=== PATIENT | female | born 1965 | race Caucasian/White ===

== ENCOUNTER 2018-06-27 09:17 | Observation (INO) ==
[2018-06-27 10:05] LABS: Basophils # (auto) 0.02 K/uL (0-0.2); Basophils % (auto) 0.3 %; Eosinophils # (auto) 0.07 K/uL (0-0.5); Eosinophils % (auto) 0.9 %; Hemoglobin 13.5 g/dL (12.0-16.0); Immature Granulocytes # (auto) 0.01 K/uL (0.00-0.02); Immature Granulocytes % (auto) 0.1 %; Lymphocytes # (auto) 2.04 K/uL (1.2-3.4); Mean Corpuscular Hgb Conc 33.8 g/dL (32-36); Mean Corpuscular Volume 91.3 fL (80-100); Mean Platelet Volume 10.4 fL (7.4-10.4); Monocytes # (auto) 0.48 K/uL (0.11-0.59); Monocytes % (auto) 6.1 %; Neutrophils # (auto) 5.24 K/uL (1.4-6.5); Neutrophils % (auto) 66.6 %; Platelet Count 313 K/uL (130-400); RDW Coefficient of Variation 13.8 % (11.5-14.5); Red Blood Count 4.38 M/uL (4.2-5.4); White Blood Count 7.86 K/uL (4.8-10.8)
--- NOTE | 2018-06-27 10:11 | XRay Report ---
XR chest 1V portable CLINICAL HISTORY: Chest pain. COMPARISON STUDY: No previous studies for comparison. FINDINGS: Lung volumes are normal. There is no pneumothorax or pleural effusion. Cardiac size is norm al. Mediastinal contours are normal. There is no consolidation or evidence for pulmonary edema. IMPRESSION: No acute cardiopulmonary findings. Electronically signed by: Lawrence Melgar M.D. 06/27/2018 10:09 AM
[2018-06-27 10:31] LABS: Albumin Level 4.4 gm/dl (3.4-5.0); BUN Creatinine Ratio 26.2 (10-20); Calcium 9.2 mg/dl (8.5-10.1); Est GFR (African American) 104.3; Potassium 3.7 mmol/L (3.5-5.1)
[2018-06-27 10:37] LABS: Albumin Globulin Ratio 1.2 (0.9-2); Bilirubin,Total 0.5 mg/dl (0.1-1); Globulin 3.8 gm/dl (2.5-4.0); Total Protein 8.2 gm/dl (6.4-8.2)
[2018-06-27] MEDS ORDERED: ASPIRIN 325 MG ECTAB PO ONE ×2 (14:11→14:22)
--- NOTE | 2018-06-27 14:31 | History & Physical Report ---
Date of Service June 27, 2018 Assessment & Plan (1) Precordial chest pain: This is a 52-year-old female with PMH of hypothyroidism and migraines who presents after developing sudden onset chest tightness this morning that has since resolved. -Afebrile, hemodynamically stable -R/o ACS; no known DM II, CAD, HTN, HLD -Initial POC troponin of 0.03. Repeat of 0.03 two hours later. Continue to trend -EKG-NSR with no acute ST changes -CXR- No acute cardiopulmonary findings -Routine echo -Repeat EKG in AM -Fasting lipids, a1c ordered -Consult cardiology -NPO after midnight in case of exercise stress test (2) Acquired hypothyroidism: TSH level pending -Continue levothyroxine DVT Ppx: SQ heparin Code status: FULL PCP: Keanu Phelan Dispo: Observation telemetry. Plan to return home once medically stable. Patient seen in collaboration with Dr. Yeager. Please see addendum. (3) History of migraine: History of Present Illness Chief Complaint: Chest pain Primary Care Provider: Chio Phelan This is a 52-year-old female with PMH of hypothyroidism and migraines who presents after developing sudden onset chest tightness this morning. When patient woke up this morning, she had a migraine and took as needed Maxalt and ibuprofen around 7 AM. [place] well enough to go to work and developed sudden onset chest tightness around 7:30 AM. Describes tightness as central, substernal pain with associated tingling in bilateral hands as well as shortness of breath and diaphoresis. Denies any radiation up to jaw or nausea and vomiting. Pain lasted approximately 15 minutes and then resolve spontaneously. Came to ED for further evaluation. Upon arrival, patient is hemodynamically stable and without chest discomfort. Denies any personal history of heart disease or CT. Denies any known history of GERD or anxiety. Has experienced costochondritis in the past but states that this felt much different. Denies any history of diabetes, HTN or HLD. No known family history of heart disease. No recent travel. No leukocytosis. Hemoglobin normal. Troponin on 0.03 x 2 readings. EKG shows normal sinus rhythm, no acute ST changes. Chest x-ray without acute abnormalities. ED physician spoke to Dr. Ochoa, who recommended trending troponin overnight and possible stress test in the morning. Allergies Allergy/AdvReac Type Severity Reaction Status Date / Time Penicillins Allergy Unknown Verified 06/27/18 16:08 Home Medications Home Medications Medication Instructions Recorded Confirmed Type levothyroxine 100 mcg PO QAM 06/27/18 06/27/18 History multivitamin 1 tab PO HS 06/27/18 06/27/18 History naproxen sodium [Aleve] 220 mg PO BID PRN 06/27/18 06/27/18 History rizatriptan 10 mg TRANSLINGUAL UD PRN 06/27/18 06/27/18 History Past Med/Surg History Medical History Acquired hypothyroidism (Chronic) History of migraine (Chronic) H/O Graves' disease (Resolved) Surgical History H/O hand surgery (Resolved) Family History Other Breast cancer HLD (hyperlipidemia) Social History Current Living Situation: Spouse Other Information That Helps Us Care for You: No Feels Safe at Home: Yes Safety Concerns: Feels Safe At This Time Smoking Status: Never smoker Do You Dip or Chew Tobacco: No Second Hand Exposure: No Tobacco Cessation Education Requested by Patient: No Hx Alcohol Use: Yes Alcohol type: wine Alcohol Intake Frequency: other Hx Substance Use: No Beliefs That Will Affect Care: None Preferred Language: Uzbek Communication Ability: Effective Knot Borer Required: No Review of Systems All systems reviewed & are unremarkable except as noted in HPI & below Physical Exam 2 Vital Signs (Past 24 Hours): Last Vital Signs Temp 36.5 C 06/27/18 09:19 Pulse 84 06/27/18 14:06 Resp 18 06/27/18 14:06 BP 111/69 06/27/18 14:06 Pulse Ox 98 06/27/18 14:06 Physical Exam: General Appearance: WD/WN, no apparent distress Head: normocephalic, atraumatic Eyes: normal inspection, PERRL, EOMI ENT: hearing grossly normal, pharynx normal (moist mucous membranes) Neck: supple, no JVD, no adenopathy Respiratory/Chest: No chest wall tenderness. Lungs clear to auscultation. No wheezes, rales or rhonci. No respiratory distress or accessory muscle use Cardiovascular: regular rate, rhythm, no murmur, normal peripheral pulses Abdomen/GI: normal bowel sounds, soft, non-tender to palpation Extremities/Musculoskelatal: normal inspection, no calf tenderness, normal capillary refill, no pedal edema Neurologic/Psych: alert, normal mood/affect, oriented x 3 Skin: normal color, warm/dry Results & Data Laboratory Results Short CBC 06/27/18 Range/Units 09:41 WBC 7.86 (4.8-10.8) K/uL Hgb 13.5 (12.0-16.0) g/dL Hct 40.0 (37-47) % Plt Count 313 (130-400) K/uL BMP 06/27/18 09:41 Sodium 140 Potassium 3.7 Chloride 105 Carbon Dioxide 27 BUN 20 H Creatinine 0.77 Glucose 86 Calcium 9.2 Liver Function 06/27/18 Range/Units 09:41 Total Bilirubin 0.5 (0.1-1) mg/dl AST 16 (15-37) U/L ALT 25 (12-78) U/L Alkaline Phosphatase 56 (45-117) U/L Albumin 4.4 (3.4-5.0) gm/dl Diagnostic Findings CXR: IMPRESSION: No acute cardiopulmonary findings. ECG Rhythm: normal sinus Code Status & VTE Plan Code Status FULL VTE Prophylaxis Plan VTE Prophylaxis will be ordered: Yes Supervising Physician Co-Signing Physician Notes Pt was seen and examined. Agreed with Tish Coe. 52-year-old female with PMH of hypothyroidism and migraines presents to the ER with chest pain that started at work. Pt said that this she woke with a migraine and took maxalt for the migraine. She said that she went to work after that, but when she got to work she developed ped chest pain. She describes it as a tightness pain, located in the substernal area, with associated with tingling in bilateral hands as well as shortness of breath and diaphoresis.She said that by the time she arrived to the ER, the chest pain resolved. Exam General- No acute distress Head- atraumatic Eyes- PERRL, EOMI, ENT- oropharynx clear Neck- supple, no JVD Lungs- clear to auscultation Heart- regular rhythm; no murmur Abdomen- normal bowel sounds, soft, nontender Extremities- no calf tenderness Neuro- alert, oriented x 3; PERRL, EOMI; no facial palsy; no dysarthria Skin- warm & dry Chest pain. Need to r/o ACS Troponinx2 negative EKG showed no ischemic changes Continue aspirin Monitor troponin cardiology on board and plan for stress test in am . continue monitor in tele EKG, CXR and lab reviewed Please refer to Carolin CASTELLON documentation for others problems. MD Toy
--- NOTE | 2018-06-27 14:47 | Emergency Department Note ---
Entered by Melany Singleton acting as a scribe for Mason Fuller MD History of Present Illness General Chief complaint: Chest Pain Stated complaint: CHEST PAIN TINGLING IN ARMS Time Seen by Provider: 06/27/18 09:39 Source: patient History of Present Illness Provider complaint: chest tightness Onset (ago): hour(s) 2 Location: chest Pain Consistency: + other (lasted for about 15 minutes) Maximum Pain Intensity: 7 Quality: + other (chest tightness) Associated symptoms: + headaches and + shortness of breath; no nausea/vomiting Treatments prior to arrival: other (migraine tablet) The patient is a 52 year old female who presents to the Emergency Room with complaints of having chest tightness 2 hours prior to arrival. The patient states that she had a migraine this morning at 0700, which she took medication for, as she has a history of migraines. The patient denies having any previous migraine medication reactions. The patient states that while she was at work this morning she was having a conversation with her boss around 0740, when her chest began to tighten and then states that she could no longer continue to communicate with him because of the tightness. The patient states that her chest tightness lasted approximately 15 minutes and rated the tightness a 7/10 in severity. The patient admits to shortness of breath, sweating, and states that she had tingling in her arms. The patient denies any nausea, loss of consciousness, an increased breathing rate, or tingling in her legs or face. She reports that she was not under stress when the episode occurred and states that she has never had a similar episode. The patient states that she walks 4 miles during her lunch break every day and states that she first noticed tightness in her chest last week but states that she attributed this to the cold weather. The patient stated that she does have hypothyroidism and also states that she had Graves Disease about 13 years ago. The patient reports that she traveled to [place] in April but otherwise had no recent travel. She states that she did not notice any leg swelling after the trip. She denies a history of smoking and states that she has never had a stress test done before. She denies a family history of heart disease, high blood pressure, diabetes, heart, lung, kidney, liver, or spleen issues, but does report a family history of hyperlipidemia. Home Medications Home Medications Medication Instructions Recorded Confirmed Type levothyroxine 100 mcg PO QAM 06/27/18 06/27/18 History multivitamin 1 tab PO HS 06/27/18 06/27/18 History naproxen sodium [Aleve] 220 mg PO BID PRN 06/27/18 06/27/18 History rizatriptan 10 mg TRANSLINGUAL UD PRN 06/27/18 06/27/18 History Allergies Allergy/AdvReac Type Severity Reaction Status Date / Time Penicillins Allergy Unknown Verified 06/27/18 16:08 Past Med/Surg History Medical History Acquired hypothyroidism (Chronic) History of migraine (Chronic) H/O Graves' disease (Resolved) Surgical History H/O hand surgery (Resolved) Family History Other Breast cancer HLD (hyperlipidemia) Social History Current Living Situation: Spouse Other Information That Helps Us Care for You: No Feels Safe at Home: Yes Safety Concerns: Feels Safe At This Time Smoking Status: Never smoker Do You Dip or Chew Tobacco: No Second Hand Exposure: No Tobacco Cessation Education Requested by Patient: No Hx Alcohol Use: Yes Alcohol type: wine Alcohol Intake Frequency: other Hx Substance Use: No Beliefs That Will Affect Care: None Preferred Language: Italian Communication Ability: Effective Junior Engineer Required: No Review of Systems See HPI for pertinent positives & negatives. and A total of 10 systems reviewed and were otherwise negative Physical Exam Vital Signs Vital Signs - 24 hr 06/27/18 09:19 06/27/18 09:35 06/27/18 09:42 Temperature 36.5 C Temperature Source Oral Sepsis Recent Fever Within 48 Hours No Sepsis Action Taken by Nursing No Action Required Pulse Rate 106 H 104 H Pulse Rate [Apical] Pulse Rhythm [Apical] Pulse Strength [Apical] Respiratory Rate 18 20 Respiratory Effort / Characteristics Non-Labored Respiratory Depth Normal Blood Pressure 132/77 119/79 Blood Pressure [Left Arm] Blood Pressure Mean 95 92 Blood Pressure Mean [Left Arm] Blood Pressure Position Sitting Blood Pressure Position [Left Arm] Pulse Oximetry 99 96 Oxygen Delivery Method Room Air Room Air 06/27/18 10:37 12/10/18 11:30 06/27/18 12:30 Temperature Temperature Source Sepsis Recent Fever Within 48 Hours Sepsis Action Taken by Nursing Pulse Rate Pulse Rate [Apical] 87 80 80 Pulse Rhythm [Apical] Pulse Strength [Apical] Respiratory Rate 18 18 20 Respiratory Effort / Characteristics Respiratory Depth Blood Pressure Blood Pressure [Left Arm] 104/70 102/66 119/81 Blood Pressure Mean Blood Pressure Mean [Left Arm] 81 78 93 Blood Pressure Position Blood Pressure Position [Left Arm] Pulse Oximetry 96 97 98 Oxygen Delivery Method Room Air Room Air Room Air 06/27/18 14:06 06/27/18 14:47 06/27/18 15:27 Temperature 36.7 C Temperature Source Oral Sepsis Recent Fever Within 48 Hours Sepsis Action Taken by Nursing Pulse Rate 98 H Pulse Rate [Apical] 84 90 Pulse Rhythm [Apical] Regular Pulse Strength [Apical] Normal Respiratory Rate 18 20 18 Respiratory Effort / Characteristics Non-Labored Respiratory Depth Normal Blood Pressure 141/59 H Blood Pressure [Left Arm] 111/69 130/70 Blood Pressure Mean Blood Pressure Mean [Left Arm] 83 90 Blood Pressure Position Blood Pressure Position [Left Arm] Sitting Pulse Oximetry 98 100 98 Oxygen Delivery Method Room Air Room Air Room Air GENERAL: Patient is in no acute distress. HEENT: No acute trauma, normocephalic atraumatic, mucous membranes moist, no nasal congestion, no scleral icterus. NECK: No stridor, no adenopathy, no meningismus, trachea is midline. LUNGS: Clear to auscultation bilaterally, no wheeze, no rhonchi, breath sounds equal. HEART: Without murmurs gallops or rubs, regular rate and rhythm. ABDOMEN: Soft, nontender, bowel sounds positive, no hernias, no peritonitis. EXTREMITIES: No cyanosis or edema, full range of motion of all the joints without pain or difficulty, no signs for acute trauma. NEUROLOGIC: Oriented x 3, no acute motor or sensory deficits, no focal weakness. SKIN: No rash, no jaundice, no diaphoresis. Course 0943: Past medical records reviewed. The patient was evaluated in room B8 , and a complete history and physical examination were performed. 1128: I checked on the patient and she appeared to be much more calm. 1227: I discussed the patient's case with Dr. Ochoa- Cardiology who recommended that the patient be admitted to the hospital for further evaluation. 1229: I updated the patient who verbalized agreement to the treatment plan. 1247: I discussed the patient's case with Hannah Hernadez who will evaluate the patient for further management. Consultations Consultation #1: Dr. Ochoa- Cardiology Time: 12:27 Consultation #2: Hannah Hernadez Time: 12:47 Administered Medications Discontinued Medications Aspirin (Ecotrin) Confirm Administered Dose 325 mg PO .STK-MED ONE Stop: 06/27/18 14:23 Last Admin: 06/27/18 14:23 Dose: 325 mg Medical Decision Making Differential Diagnosis The patient is a 52 year old female who presents to the ED with chest tightness. Differential diagnosis includes angina, [place], aortic dissection, PE, anxiety, medication reaction, and anemia. Medical Records Attestation: I reviewed the patient's medical records. Home Medications Current Medication List: was personally reviewed by me Laboratory Data Attestation: I reviewed the patient's lab results. Result diagrams: 06/27/18 09:41 06/27/18 09:41 Lab Results 06/27/18 06/27/18 06/27/18 Range/Units 09:41 09:41 09:41 WBC 7.86 (4.8-10.8) K/uL RBC 4.38 (4.2-5.4) M/uL Hgb 13.5 (12.0-16.0) g/dL Hct 40.0 (37-47) % MCV 91.3 (80-100) fL MCH 30.8 (25-34) pg MCHC 33.8 (32-36) g/dL RDW Std Deviation 46.0 (36.4-46.3) fL RDW Coeff of Wilmer 13.8 (11.5-14.5) % Plt Count 313 (130-400) K/uL MPV 10.4 (7.4-10.4) fL Immature Gran % (Auto) 0.1 % Neut % (Auto) 66.6 % Lymph % (Auto) 26.0 % [place] % (Auto) 6.1 % Eos % (Auto) 0.9 % Baso % (Auto) 0.3 % Immature Gran # (Auto) 0.01 (0.00-0.02) K/uL Neut # (Auto) 5.24 (1.4-6.5) K/uL Lymph # (Auto) 2.04 (1.2-3.4) K/uL [place] # (Auto) 0.48 (0.11-0.59) K/uL Eos # (Auto) 0.07 (0-0.5) K/uL Baso # (Auto) 0.02 (0-0.2) K/uL PT (9.0-12.0) Seconds INR (0.9-1.1) D-Dimer 330 (0-500) ug/L FEU Sodium 140 (136-145) mmol/L Potassium 3.7 (3.5-5.1) mmol/L Chloride 105 (98-107) mmol/L Carbon Dioxide 27 (21-32) mmol/L Anion Gap 8.0 (3-11) BUN 20 H (7-18) mg/dl Creatinine 0.77 (0.6-1.2) mg/dl Est Cr Clr Drug Dosing 66.0 ml/min Est GFR ( Amer) 104.3 Est GFR (Non-Af Amer) 90.0 BUN/Creatinine Ratio 26.2 H (10-20) Glucose 86 (70-99) mg/dl Calcium 9.2 (8.5-10.1) mg/dl Total Bilirubin 0.5 (0.1-1) mg/dl AST 16 (15-37) U/L ALT 25 (12-78) U/L Alkaline Phosphatase 56 (45-117) U/L POC Troponin I (0-0.045) ng/ml Total Protein 8.2 (6.4-8.2) gm/dl Albumin 4.4 (3.4-5.0) gm/dl Globulin 3.8 (2.5-4.0) gm/dl Albumin/Globulin Ratio 1.2 (0.9-2) Lipase 175 (73-393) U/L 06/27/18 06/27/18 06/27/18 Range/Units 09:41 10:02 12:07 WBC (4.8-10.8) K/uL RBC (4.2-5.4) M/uL Hgb (12.0-16.0) g/dL Hct (37-47) % MCV (80-100) fL MCH (25-34) pg MCHC (32-36) g/dL RDW Std Deviation (36.4-46.3) fL RDW Coeff of Wilmer (11.5-14.5) % Plt Count (130-400) K/uL MPV (7.4-10.4) fL Immature Gran % (Auto) % Neut % (Auto) % Lymph % (Auto) % [place] % (Auto) % Eos % (Auto) % Baso % (Auto) % Immature Gran # (Auto) (0.00-0.02) K/uL Neut # (Auto) (1.4-6.5) K/uL Lymph # (Auto) (1.2-3.4) K/uL [place] # (Auto) (0.11-0.59) K/uL Eos # (Auto) (0-0.5) K/uL Baso # (Auto) (0-0.2) K/uL PT 10.0 (9.0-12.0) Seconds INR 1.0 (0.9-1.1) D-Dimer (0-500) ug/L FEU Sodium (136-145) mmol/L Potassium (3.5-5.1) mmol/L Chloride (98-107) mmol/L Carbon Dioxide (21-32) mmol/L Anion Gap (3-11) BUN (7-18) mg/dl Creatinine (0.6-1.2) mg/dl Est Cr Clr Drug Dosing ml/min Est GFR ( Amer) Est GFR (Non-Af Amer) BUN/Creatinine Ratio (10-20) Glucose (70-99) mg/dl Calcium (8.5-10.1) mg/dl Total Bilirubin (0.1-1) mg/dl AST (15-37) U/L ALT (12-78) U/L Alkaline Phosphatase (45-117) U/L POC Troponin I < 0.03 < 0.03 (0-0.045) ng/ml Total Protein (6.4-8.2) gm/dl Albumin (3.4-5.0) gm/dl Globulin (2.5-4.0) gm/dl Albumin/Globulin Ratio (0.9-2) Lipase (73-393) U/L Imaging Data Radiologist's Impression: Radiology results as stated below per my review and the radiologist's interpretation: XR chest 1V portable CLINICAL HISTORY: Chest pain. COMPARISON STUDY: No previous studies for comparison. FINDINGS: Lung volumes are normal. There is no pneumothorax or pleural effusion. Cardiac size is normal. Mediastinal contours are normal. There is no consolidation or evidence for pulmonary edema. IMPRESSION: No acute cardiopulmonary findings. Electronically signed by: Lawrence Melgar M.D. 06/27/2018 10:09 AM ECG Data Attestation: I personally reviewed and interpreted this ECG as follows: Indication: chest pain Rate (beats per minute): 92 Rhythm: normal sinus Findings: no PVC and no ST elevation Blood Pressure Blood Pressure Findings: Normal blood pressure MDM Narrative There is no leukocytosis or concerning anemia. No significant electrolyte abnormality, kidney failure or hepatitis. EKG shows a normal sinus rhythm, no acute ST elevation. No acute ischemia. Cardiac enzyme testing x2 is not consistent with acute cardiac injury. By our testing, there was no evidence for pancreatitis. Chest film did not show mediastinal widening, pneumonia or pneumothorax. D-dimer testing was negative. With a negative d-dimer and a mild low suspicion for PE, I will stop the workup for this diagnosis. The patient presents with sub-sternal chest pain that made her short of breath and sweaty. She has noticed some tightness in her chest with walking distances as of late. I discussed the case with on-call cardiology. A hospital stay and further cardiac workup was recommended. Currently, the patient is pain-free, she is resting comfortably. I did speak to the patient and case management. On-call hospitalist was consulted. Impression & Plan Precordial chest pain Discharge Plan Visit Data *Final* Discharge Date/Time: 06/27/18 14:47 Chief Complaint: Chest Pain Stated Complaint: CHEST PAIN TINGLING IN ARMS ED Provider: Mason Fuller Discharge Problem: Precordial chest pain Patient Disposition: Admitted As Inpatient Discharge Instructions Interventions: ED Discharge Assessment Last Done: 06/27/18 14:47 The scribe's documentation has been prepared under my direction and personally reviewed by me in its entirety. I confirm that the note above accurately reflects all work, treatment, procedures, and medical decision making performed by me.
[2018-06-27] MEDS ORDERED: ACETAMINOPHEN 325 MG TAB PO PRN (15:02)
[2018-06-27] MEDS ORDERED: NAPROXEN 250 MG TAB PO PRN (15:02)
[2018-06-27] MEDS ORDERED: POLYETHYLENE (MIRALAX) 17 GM PACK PO PRN (15:02)
[2018-06-27] MEDS ORDERED: NITROGLYCERIN SL 0.4 MG/TAB TAB SL PRN (15:02)
[2018-06-27] MEDS ORDERED: ONDANSETRON INJ 2 MG/ML 2 ML VIAL IV PRN (15:02)
[2018-06-27] MEDS ORDERED: RIZATRIPTAN BENZOATE MLT 10 MG TAB SL PRN (15:02)
--- NOTE | 2018-06-27 15:16 | Cardiology Consultation ---
Date of Consultation June 27, 2018 Assessment & Plan (1) Precordial chest pain: The patient's cardiac markers are thus far negative. Her EKG shows no acute changes. I would continue her on a shelter monitor and admit her for observation. Draw additional cardiac markers and obtain serial EKGs. She did take rizatryptophan for her migraine this morning. She states that she takes this routinely and has done so for the past 20 years. This medication however, can cause coronary spasm which is of a concern to me. We will await further cardiac markers and evaluate her again in the morning.Another concern is that she has mild chest discomfort while doing her usual walking. Although, this may have resulted from the cold weather it is a bit of concern. (2) History of migraine: (3) Acquired hypothyroidism: History of Present Illness Reason for Consultation: Chest pain Attending Physician: Carlos Yeager MD History of Present Illness This is a 52-year-old healthy female who is treated for hypothyroidism and has no other significant past medical history except for migraines which she has had since she was a young adult.She usually walks several miles a day with her colleagues without difficulty but over the past 1-2 weeks she has noticed some mild chest discomfort that she attributed to the cold weather.Nothing that made her stop. She denies shortness of breath or dyspnea. No heart palpitations or tachycardia.This morning she awoke and noted that she was going to have a migraine. She took her migraine medication and decided to go to work. She was not there that long when she suddenly developed severe chest discomfort that made her lay down. It lasted approximately 15 minutes and then spontaneously resolved. She has no current chest pain. She has no previous history of heart disease. She denies diabetes or hypertension. No significant family history of heart disease. Allergies Allergy/AdvReac Type Severity Reaction Status Date / Time PENICILLIN Allergy Unknown Unknown Uncoded 06/27/18 10:26 Home Medications Home Medications Medication Instructions Recorded Confirmed Type levothyroxine 100 mcg PO QAM 06/27/18 06/27/18 History multivitamin 1 tab PO HS 06/27/18 06/27/18 History naproxen sodium [Aleve] 220 mg PO BID PRN 06/27/18 06/27/18 History rizatriptan 10 mg TRANSLINGUAL UD PRN 06/27/18 06/27/18 History Patient History Medical History Acquired hypothyroidism (Chronic) History of migraine (Chronic) H/O Graves' disease (Resolved) Surgical History H/O hand surgery (Resolved) Family History Other Breast cancer HLD (hyperlipidemia) Social History Current Living Situation: Spouse Other Information That Helps Us Care for You: No Feels Safe at Home: Yes Safety Concerns: Feels Safe At This Time Smoking Status: Never smoker Do You Dip or Chew Tobacco: No Second Hand Exposure: No Tobacco Cessation Education Requested by Patient: No Hx Alcohol Use: Yes Alcohol type: wine Alcohol Intake Frequency: other Hx Substance Use: No Beliefs That Will Affect Care: None Preferred Language: Swedish Communication Ability: Effective Brand Sales Consultant Required: No Review of Systems Review of Systems: See HPI for pertinent positives. All other 10 point review of systems are negative. Physical Exam 2 Vital Signs (Past 24 Hours): Last Vital Signs Temp 36.5 C 06/27/18 09:19 Pulse 98 H 06/27/18 14:47 Resp 20 06/27/18 14:47 BP 141/59 H 06/27/18 14:47 Pulse Ox 100 06/27/18 14:47 Physical Exam: General: no acute distress and stated age Head: normocephalic, no masses, lesions, tenderness or abnormalities Eyes: conjunctiva are pink and non-injected, sclera clear Neck: supple, no adenopathy, no bruits, normal jugular venous pulse, no hepatojugular reflux Chest: normal shape and normal respiratory effort Lungs: clear to auscultation and percussion Cardiac Exam: - regular rate & rhythm, no murmurs gallops or rubs - normal S1, normal S2 Pulses: 2(+) throughout Abdomen: abdomen soft, non-tender, no abnormal masses and no hepatosplenomegaly Musculoskeletal: no gait disturbance, no joint inflammation, no deforming arthritis Extremities: no edema and no cyanosis Neuro: grossly normal exam Results & Data Laboratory Results Laboratory Results - last 24 hr 06/27/18 06/27/18 06/27/18 09:41 09:41 09:41 WBC 7.86 RBC 4.38 Hgb 13.5 Hct 40.0 MCV 91.3 MCH 30.8 MCHC 33.8 RDW Std Deviation 46.0 RDW Coeff of Wilmer 13.8 Plt Count 313 MPV 10.4 Immature Gran % (Auto) 0.1 Neut % (Auto) 66.6 Lymph % (Auto) 26.0 Rincon % (Auto) 6.1 Eos % (Auto) 0.9 Baso % (Auto) 0.3 Immature Gran # (Auto) 0.01 Neut # (Auto) 5.24 Lymph # (Auto) 2.04 Rincon # (Auto) 0.48 Eos # (Auto) 0.07 Baso # (Auto) 0.02 D-Dimer 330 Sodium 140 Potassium 3.7 Chloride 105 Carbon Dioxide 27 Anion Gap 8.0 BUN 20 H Creatinine 0.77 Est Cr Clr Drug Dosing 66.0 Est GFR ( Amer) 104.3 Est GFR (Non-Af Amer) 90.0 BUN/Creatinine Ratio 26.2 H Glucose 86 Calcium 9.2 Total Bilirubin 0.5 AST 16 ALT 25 Alkaline Phosphatase 56 POC Troponin I Total Protein 8.2 Albumin 4.4 Globulin 3.8 Albumin/Globulin Ratio 1.2 Lipase 175 06/27/18 06/27/18 10:02 12:07 WBC RBC Hgb Hct MCV MCH MCHC RDW Std Deviation RDW Coeff of Wilmer Plt Count MPV Immature Gran % (Auto) Neut % (Auto) Lymph % (Auto) Rincon % (Auto) Eos % (Auto) Baso % (Auto) Immature Gran # (Auto) Neut # (Auto) Lymph # (Auto) Rincon # (Auto) Eos # (Auto) Baso # (Auto) D-Dimer Sodium Potassium Chloride Carbon Dioxide Anion Gap BUN Creatinine Est Cr Clr Drug Dosing Est GFR ( Amer) Est GFR (Non-Af Amer) BUN/Creatinine Ratio Glucose Calcium Total Bilirubin AST ALT Alkaline Phosphatase POC Troponin I < 0.03 < 0.03 Total Protein Albumin Globulin Albumin/Globulin Ratio Lipase Medications Administered Current Inpatient Medications levothyroxine 100 mcg PO QAM 06/27/18 [History Confirmed 06/27/18] multivitamin 1 tab PO HS 06/27/18 [History Confirmed 06/27/18] naproxen sodium [Aleve] 220 mg PO BID PRN 06/27/18 [History Confirmed 06/27/18] rizatriptan 10 mg TRANSLINGUAL UD PRN 06/27/18 [History Confirmed 06/27/18] Home Medications Acetaminophen (Tylenol) 650 mg PO Q4H PRN PRN Reason: Pain or Fever Stop: 07/27/18 15:01 Heparin Sodium (Porcine) (Heparin Sodium (Porcine)) 5,000 units SQ Q8 ARACELY Stop: 07/27/18 21:59 Levothyroxine Sodium (Synthroid) 100 mcg PO QAM ARACELY Stop: 07/28/18 08:59 Multivitamins (Multivitamin) 1 tab PO HS ARACELY Stop: 07/27/18 20:59 Nitroglycerin (Nitrostat) 0.4 mg SL UD PRN PRN Reason: Chest Pain Stop: 07/27/18 15:01 Non-Formulary Medication (Naproxen Sodium [Aleve]) 220 mg PO BID PRN PRN Reason: Pain Non-Formulary Medication (Rizatriptan [Rizatriptan]) 10 mg TL UD PRN PRN Reason: Migraine Headache Ondansetron HCl (Zofran) 4 mg IV Q6H PRN PRN Reason: Nausea Stop: 07/27/18 15:01 Polyethylene Glycol (Miralax Powder Packet) 17 gm PO DAILY PRN PRN Reason: Constipation Stop: 07/27/18 15:01
[2018-06-27] MEDS ORDERED: MULTIVITAMIN TAB PO SCH (21:00)
[2018-06-27] MEDS: HEPARIN SOD 5,000 UNIT/0.5 ML VIAL SQ SCH (21:37)
[2018-06-28 05:57] LABS: Hematocrit (blood only) 36.4 % (37-47); Hemoglobin 11.9 g/dL (12.0-16.0); Mean Corpuscular Hgb Conc 32.7 g/dL (32-36); Mean Corpuscular Volume 92.4 fL (80-100); Mean Platelet Volume 10.3 fL (7.4-10.4); Platelet Count 290 K/uL (130-400); RDW Coefficient of Variation 13.9 % (11.5-14.5); RDW Standard Deviation 47.5 fL (36.4-46.3); Red Blood Count 3.94 M/uL (4.2-5.4); White Blood Count 6.94 K/uL (4.8-10.8)
[2018-06-28 06:06] LABS: Estimated Average Glucose 105 mg/dl
[2018-06-28] MEDS: HEPARIN SOD 5,000 UNIT/0.5 ML VIAL SQ SCH (06:19)
[2018-06-28 06:21] LABS: BUN Creatinine Ratio 21.7 (10-20); Calcium 8.4 mg/dl (8.5-10.1); Creatinine Clr Calc Pharmacy 67.7 ml/min; Est GFR (African American) 107.7; Est GFR (Non-African American) 92.9; Potassium 3.7 mmol/L (3.5-5.1)
[2018-06-28] MEDS ORDERED: LEVOTHYROXINE SODIUM 100 MCG TABLET PO SCH (06:30)
--- NOTE | 2018-06-28 08:14 | Cardiology Progress Note ---
Date of Service June 28, 2018 Assessment & Plan (1) Precordial chest pain: The patient's cardiac markers, echocardiogram and EKGs are all normal. Her only complaint today is that of a headache which is consistent with her migraines. I discussed with her the possibility of coronary spasm from her migraine medications. I believe that she should avoid these medications and consult her primary care physician for alternatives. I believe that she may be discharged to outpatient follow-up. Because she was having some mild dyspnea during her daily walks, I believe that she should have a regular exercise stress test as an outpatient which I will arrange. (2) History of migraine: (3) Acquired hypothyroidism: Physical Exam 2 Vital Signs (Past 24 Hours): Last Vital Signs Temp 36.6 C 06/28/18 06:42 Pulse 88 06/28/18 06:42 Resp 16 06/28/18 06:42 BP 92/61 L 06/28/18 06:42 Pulse Ox 99 06/28/18 06:42
--- NOTE | 2018-06-28 11:46 | Discharge Summary ---
Date of Service June 28, 2018 Admission HPI Per Admitting Provider This is a 52-year-old female with PMH of hypothyroidism and migraines who presents after developing sudden onset chest tightness this morning. When patient woke up this morning, she had a migraine and took as needed Maxalt and ibuprofen around 7 AM. [place] well enough to go to work and developed sudden onset chest tightness around 7:30 AM. Describes tightness as central, substernal pain with associated tingling in bilateral hands as well as shortness of breath and diaphoresis. Denies any radiation up to jaw or nausea and vomiting. Pain lasted approximately 15 minutes and then resolve spontaneously. Came to ED for further evaluation. Upon arrival, patient is hemodynamically stable and without chest discomfort. Denies any personal history of heart disease or OK. Denies any known history of GERD or anxiety. Has experienced costochondritis in the past but states that this felt much different. Denies any history of diabetes, HTN or HLD. No known family history of heart disease. No recent travel. No leukocytosis. Hemoglobin normal. Troponin on 0.03 x 2 readings. EKG shows normal sinus rhythm, no acute ST changes. Chest x-ray without acute abnormalities. ED physician spoke to Dr. Ochoa, who recommended trending troponin overnight and possible stress test in the morning. Admission Exam Per Admitting Provider General Appearance: WD/WN, no apparent distress Head: normocephalic, atraumatic Eyes: normal inspection, PERRL, EOMI ENT: hearing grossly normal, pharynx normal (moist mucous membranes) Neck: supple, no JVD, no adenopathy Respiratory/Chest: No chest wall tenderness. Lungs clear to auscultation. No wheezes, rales or rhonci. No respiratory distress or accessory muscle use Cardiovascular: regular rate, rhythm, no murmur, normal peripheral pulses Abdomen/GI: normal bowel sounds, soft, non-tender to palpation Extremities/Musculoskelatal: normal inspection, no calf tenderness, normal capillary refill, no pedal edema Neurologic/Psych: alert, normal mood/affect, oriented x 3 Skin: normal color, warm/dry Principal Diagnosis Chest painMI ruled out, stress test as an outpatient Hypothyroidism Migraineswe gave her instructions to follow-up with her PCP for a neurology referral for headaches. She needs to be off the Maxalt Discharge Exam ROS-mild headache, No Visual Changes, No Fever, No Chills, No Neck Pain or Stiffness, No Chest Pain, No Palpitations, No SOB, No DILLARD, No Cough, No Sputum, No Wheezing, No Abdominal Pain, No Diarrhea, No Hematemesis, No Hemoptysis, No Unexpected Weight Loss, No Flank pain, No Melena, No Hematochezia, No Frequency , No Urgency, No Burning, No Hematuria, No Rashes, No Diaphoresis. Appetite is Normal Physical Exam Gen-AAO x 3, NAD, Afebrile, appears 10-15 years less than her stated age Head-NCAT, EOMI, PERRLA, Anicteric Sclera, No Posterior Pharyngeal Erythema Neck-Supple, No JVD, No Thyromegaly, No Masses, No LAD, No Bruits Lungs-Clear to Auscultation Bilaterally, No Rales, No Rhonchi, No Wheezing, No Crepitus Chest-No S4, +S1, +S2, No S3, No Murmurs, No Rubs, No Gallops, No Ectopy Abdomen-Soft, Bowel Sounds Present, Non Tender, Non Distended, No Hepatomegaly, No Splenomegaly, No Palpable Masses, No Rebound, No Rigidity, No Guarding Musculoskeletal-Full Range of Motion Bilaterally, No CVAT Extremities-No Cyanosis, No Clubbing, No Edema Nuero-Cranial Nerves II-XII grossly intact, Motor WNL, DTRs WNL, Strength WNL, No Focal Psych-Normal Mood Discharge Data Allergies Allergy/AdvReac Type Severity Reaction Status Date / Time Penicillins Allergy Unknown Verified 06/27/18 16:08 Consultations 06/27/18 12:46 ED Decision to Admit Stat 06/27/18 14:48 Consult Cardiology Routine Hospital Course (1) Precordial chest pain: This is a 52-year-old female with PMH of hypothyroidism and migraines who presents after developing sudden onset chest tightness this morning that has since resolved. Enzymes are all negative she will have an outpatient stress test in the office with cardiology -EKG-NSR with no acute ST changes -CXR- No acute cardiopulmonary findings -Fasting lipids, a1c ordered -Cardiology case (2) Acquired hypothyroidism: TSH level pending -Continue levothyroxine Code status: FULL PCP: Keanu Phelan Dispo: DC home today follow-up in the cardiology office for stress test (3) History of migraine: Total Time Total Time Spent Total Time Spent (In Minutes): 45 minutes Total Time Includes: Examination of the Patient, Discharge Planning, Medication Reconciliation and Communication With Other Providers Discharge Plan Discharge Items Patient Disposition: Home - Home Health Services Reason For Visit: CHEST PAIN Discharge Diagnosis: Chest Pain Discharge Goals: Decrease discomfort and Improve function Activity: Resume your previous activity Non-emergency contact: Primary Care Provider Call non-emergency contact if: you have any medication questions and your symptoms worsen Follow-up/Referrals: Leonardo Ochoa, [[employer]ing Press Operator] - 07/04/18 12:00 pm Chio Phelan [Primary Care Provider] - 07/01/18 10:15 am Diet: Heart Healthy Addtl Provider Instructions: You were admitted to the hospital with chest pain. You had labs and an echocardiogram that were unremarkable. Cardiology evaluated you and felt as though your symptoms could be due to coronary vasospasm from rizatriptan (Maxalt). Do not take any more of this medication. You can discuss with your PCP about further migraine medicines or neurology referral. You are to have a stress test on 07/04 at 12:00 at [facility]. You will receive further instructions from cardiology. Follow up with Dr. Chio Phelan on 07/01 at 10:15 Prescriptions: Continue multivitamin Tablet 1 tab PO HS RF: 0 levothyroxine 100 mcg tablet 100 mcg PO QAM RF: 0 Discontinued rizatriptan 10 mg tablet,disintegrating 10 mg Translingual UD PRN (Reason: Migraine Headache) RF: 0 naproxen sodium [Aleve] 220 mg Tablet 220 mg PO BID PRN (Reason: Pain) RF: 0 Stand-Alone Forms: [employer]/Other Patient Handouts: ED Chest Pain Noncardiac Ch Discharge Orders: Discharge Order (Routine); Ordered 06/28/18 Ordered By: Emily Mcdowell Admission Data Admit Date/Time: 06/27/18 14:13 Attending Provider: Petros Mclean Admit Provider: Carlos Yeager Primary Care Provider: Chio Phelan Other Providers: Leonardo Ochoa ; Carlos Yeager Service: Telemetry Other Interventions: Discharge Summary Assessment (RN) Last Done: 06/28/18 10:24 DC Date/Time DO NOT enter until pt leaves facility: 06/28/18 11:31
== END 2018-06-28 11:31 | disposition home health service (06) ==
LOC: 2S 09:17 → ED 09:17 → SUATTDRO 14:13 → 2S 14:47